=== PATIENT | male | born 1970 | race Caucasian/White ===

== ENCOUNTER 2019-05-23 05:42 | Day surgery (SDC) | payer OTHER ==
[~2019-05-23] VITALS: Ht 190.5 cm; Wt 178.5 kg
[~2019-05-23 05:42] MED LIST: CETI-158 PO; FURO-93 PO; MULT1TAB60 PO; [UNRECOGNIZED DRUG - OTHER] PO
[2019-05-23] MEDS ORDERED: HEPARIN 1,000 UNITS/ML, 10ML ONE (06:16)
[2019-05-23] MEDS ORDERED: EPINEPHRINE 1 MG/ML, 1ML ONE (06:16)
[2019-05-23 06:18] VITALS: BP 150/89
[2019-05-23] MEDS ORDERED: LACTATED RINGERS 1,000 ML IV SCH (06:20)
[2019-05-23] MEDS ORDERED: ACETAMINOPHEN 500 MG TABLET ONE (06:37)
[2019-05-23] MEDS ORDERED: FENTANYL PF 100 MCG/2ML ONE (06:43)
[2019-05-23] MEDS ORDERED: MIDAZOLAM 1 MG/ML, 2ML ONE (06:43)
[2019-05-23] MEDS ORDERED: LIDOCAINE-MPF 2% ,5ML ONE (06:44)
[2019-05-23] MEDS ORDERED: SUCCINYLCHOLINE 20 MG/ML, 10ML ONE (06:45)
[2019-05-23] MEDS ORDERED: HYDROmorphone 2 MG/ML, 1ML IVPush PRN (07:00)
[2019-05-23] MEDS ORDERED: ONDANSETRON 2MG/ML, 2ML IV PRN (07:00)
[2019-05-23] MEDS ORDERED: ACETAMINOPHEN 500 MG TABLET PO ONE (07:00)
[2019-05-23] MEDS ORDERED: LABETALOL 5MG/ML, 20ML IV PRN (07:00)
[2019-05-23] MEDS ORDERED: hydrALAzine 20 MG/ML, 1ML IV PRN (07:00)
[2019-05-23] MEDS ORDERED: OXYcodone 5 MG/5 ML ORAL.SOL UDC PO PRN (07:00)
[2019-05-23] MEDS ORDERED: FENTANYL PF 100 MCG/2ML IV PRN (07:00)
[2019-05-23] MEDS ORDERED: MEPERIDINE/PF 25MG/ML,1ML IVPush PRN (07:00)
[2019-05-23] MEDS ORDERED: PROMETHAZINE 25 MG/ML, 1ML IV PRN (07:00)
[2019-05-23] MEDS ORDERED: EPHEDRINE 50 MG/ML, 1ML IVPush PRN (07:00)
[2019-05-23] MEDS ORDERED: PROPOFOL 10 MG/ML, 20ML ONE (07:10)
[2019-05-23] MEDS ORDERED: KETOROLAC 30 MG/1 ML ONE (07:19)
[2019-05-23] MEDS ORDERED: DEXAMETHASONE 4 MG/ML, 1ML ONE ×3 (07:19)
[2019-05-23] MEDS ORDERED: ONDANSETRON 2MG/ML, 2ML ONE (07:22)
[2019-05-23] MEDS ORDERED: CEFAZOLIN 1,000 MG ONE ×3 (07:32)
== END 2019-05-23 10:00 | disposition home or self-care (01) ==
LOC: OUT 05:42
PROVIDERS: ATTEND Colon & Rectal Surgery
DX: Z45.2 Encounter for adjustment and management of vascular access device (principal); C20 Malignant neoplasm of rectum; C79.9 Secondary malignant neoplasm of unspecified site; Z72.89 Other problems related to lifestyle
CPT/HCPCS: 36561; 77001; C1788; J0171; J0330; J0690; J1100; J1644; J1885; J2250; J2405; J2704; J3010; J7120

== ENCOUNTER 2019-06-12 06:04 | Day surgery (SDC) | payer OTHER ==
[~2019-06-12] VITALS: Ht 190.5 cm; Wt 176.0 kg
[2019-06-12 06:35] VITALS: BP 149/97
[2019-06-12] MEDS ORDERED: FLUMAZENIL 0.1 MG/1 ML, 5ML ONE (07:50)
[2019-06-12] MEDS ORDERED: MIDAZOLAM 1 MG/ML, 5ML ONE (07:50)
[2019-06-12] MEDS ORDERED: NALOXONE 1 MG/ML, 2ML ONE (07:50)
[2019-06-12] MEDS ORDERED: FENTANYL PF 100 MCG/2ML ONE (07:51)
[2019-06-12] MEDS ORDERED: LIDOCAINE 1%, 10ML ONE (08:08)
== END 2019-06-12 11:49 | disposition home or self-care (01) ==
LOC: OUT 06:04
PROVIDERS: ATTEND Specialist
DX: R91.1 Solitary pulmonary nodule (principal); C78.01 Secondary malignant neoplasm of right lung; C20 Malignant neoplasm of rectum; I10 Essential (primary) hypertension; G47.30 Sleep apnea, unspecified
CPT/HCPCS: 32405; 71045; 77012; 88172; 88305; 99156; 99157; J2250; J3010; J2310

== ENCOUNTER 2019-06-27 17:37 | Observation (INO) | payer OTHER ==
[~2019-06-27] VITALS: Ht 190.5 cm; Wt 180.4 kg
[~2019-06-27 17:37] MED LIST changes: -AMOX-291 PO; -APIX5TAB PO; -AVASTIN; -FLUOROURACIL; -FOLFOX; -FURO40TA6 PO; -LEUCOVORIN; -ONDA8TAB9 PO; -OXALIPLATIN; -POTA20TA14 PO
--- NOTE | 2019-06-27 18:19 | NUR ---
PIV ESTABLISHED AND LABS DRAWN.
--- NOTE | 2019-06-27 18:20 | NUR ---
PT HERE WITH C/O THROMBUS TO RIGHT IJ ABOVE R CHEST PORT. 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 PT AAO X 4, NAD, ROOM AIR. CHEST PORT ACCESSED FROM [facility]ION [facility] ON ARRIVAL. PER PT, "I HAVE THIS LIKE TIGHTNESS ON THE RIGHT SIDE FO MY NECK AND I TOLD THE INFUSION CENTER AND THEY SENT ME FOR A US AND THATS WHEN THEY FOUND THE CLOT." MD AT BEDSIDE, PT IN GOWN AND ON FULL MONITOR. CALL LIGHT WITHIN REACH AND SIDERAIL X [address]
[2019-06-27] MEDS ORDERED: FLUOROURACIL (18:28)
[2019-06-27] MEDS ORDERED: OXALIPLATIN (18:28)
[2019-06-27] MEDS ORDERED: LEUCOVORIN (18:28)
[2019-06-27] MEDS ORDERED: FURO40TA6 PO (18:28)
[2019-06-27] MEDS ORDERED: FOLFOX (18:28)
[2019-06-27] MEDS ORDERED: POTA20TA14 PO (18:28)
[2019-06-27] MEDS ORDERED: AVASTIN (18:28)
--- NOTE | 2019-06-27 18:28 | NUR ---
MED REC COMPLETED. LAST CHEMO INFUSION TODAY 06/27
[2019-06-27] MEDS ORDERED: HEPARIN 5,000 UNITS/ML, 1ML IV ONE (18:30)
[2019-06-27] MEDS ORDERED: SODIUM CHLORIDE FLUSH 10ML SYR IVF ONE (18:30)
[2019-06-27] MEDS ORDERED: HEPARIN 5,000 UNITS/ML, 1ML IV PRN ×2 (18:30→19:30)
[2019-06-27] MEDS ORDERED: HEPARIN 25,000 UNITS/250ML PMX 250 ML IV PRN ×2 (18:30→19:30)
[2019-06-27 18:37] LABS: BASOPHILS # (AUTO) 0.06 x10^3/uL (0-0.1); BASOPHILS % (AUTO) 1 % (0-1); EOSINOPHILS # (AUTO) 0.06 x10^3/uL (0-0.4); EOSINOPHILS % (AUTO) 1 % (1-7); LYMPHOCYTES # (AUTO) 2.01 x10^3/uL (1-3.4); LYMPHOCYTES % (AUTO) 20 % (22-44); MD NO; MEAN CORPUSCULAR HEMOGLOBIN 27.7 pg (27.5-34.5); MEAN CORPUSCULAR VOLUME 86.5 fL (81-97); MEAN PLATELET VOLUME 7.9 fL (7.4-10.4); MONOCYTES # (AUTO) 0.26 x10^3/uL (0.2-0.8); MONOCYTES % (AUTO) 3 % (2-9); NEUTROPHILS # (AUTO) 7.62 x10^3/uL (1.8-6.8); NEUTROPHILS % (AUTO) 76 % (42-75); PLATELET COUNT 210 x10^3/uL (130-400); RED BLOOD COUNT 4.57 x10^6/uL (4.38-5.82); RED CELL DISTRIBUTION WIDTH 14.6 % (9.4-14.8)
[2019-06-27 18:40] LABS: INTERNATIONAL NORMALIZED RATIO 0.95 (0.93-1.1); PROTHROMBIN TIME 10.1 Seconds (9.6-11.5)
[2019-06-27 18:41] LABS: ALBUMIN 3.4 g/dL (3.4-5.0); ANION GAP 6 mmol/L (5-15); CALCIUM 8.2 mg/dL (8.5-10.1); CHLORIDE 105 mmol/L (98-107); CREATININE 1.02 mg/dL (0.7-1.3)
[2019-06-27] MEDS ORDERED: HEPARIN 5,000 UNITS/ML, 1ML ONE (18:49)
[2019-06-27] MEDS ORDERED: HEPARIN 25,000 UNITS/250ML PMX 250 ML ONE (18:50)
--- NOTE | 2019-06-27 18:58 | NUR ---
HEPARIN STARTED PER ORDERS, VERIFIED WITH SARAH PUCKETT.
[2019-06-27] MEDS ORDERED: DOCUSATE 100 MG CAPSULE PO PRN (19:00)
[2019-06-27] MEDS ORDERED: LABETALOL 5 MG/ML SYR. (IV ONLY) IVPush PRN (19:00)
[2019-06-27] MEDS ORDERED: BISACODYL 10 MG SUPP PR PRN (19:00)
[2019-06-27] MEDS ORDERED: VISIPAQUE 270 MG/ML, 50ML BOTTLE ONE (19:00)
[2019-06-27] MEDS ORDERED: POLYETHYLENE GLYCOL 17 GM PACKET PO PRN (19:00)
[2019-06-27] MEDS ORDERED: ACETAMINOPHEN 325 MG TABLET PO PRN (19:00)
[2019-06-27] MEDS ORDERED: ONDANSETRON 2MG/ML, 2ML IVPush PRN (19:00)
[2019-06-27] MEDS ORDERED: ENALAPRILAT 1.25 MG/ML, 2ML IVPush PRN (19:00)
[2019-06-27] MEDS ORDERED: PROMETHAZINE 25 MG/ML, 1ML IM PRN (19:00)
--- NOTE | 2019-06-27 19:05 | NUR ---
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 PER PHARMACY, OK TO CHANGE GTT WHEN NEW ORDERS ARE PLACED AND OK NOT TO RE-BOLUS FOR INITIAL.
--- NOTE | 2019-06-27 19:14 | NUR ---
REPORT GIVEN TO IR RN VIA PHONE.
--- NOTE | 2019-06-27 19:19 | NUR ---
PT TO IR.
--- NOTE | 2019-06-27 19:26 | NUR ---
REPORT GIVEN TO SARAH CANSECO. PT TO TRANSFER TO ROOM 433 S/P IR PROCEDURE IF PT IS NOT ICU STATUS.
[2019-06-27] MEDS ORDERED: LIDOCAINE 1%, 10ML ONE (19:49)
--- NOTE | 2019-06-27 19:50 | NUR ---
REPORT GIVEN TO SARAH MYRICK. PT CURRENTLY IN IR BUT TO TRANSFER TO ICU STATUS POST PROCEDURE.
[2019-06-27 21:39] VITALS: BP 143/88
[2019-06-27] MEDS ORDERED: ONDA8TAB9 PO (21:39)
[2019-06-27] MEDS ORDERED: AMOX-291 PO (21:43)
[2019-06-27] MEDS: AMOXICILLIN 500 MG CAPSULE HOMEMEDPO SCH (22:15)
[2019-06-27] MEDS ORDERED: ONDANSETRON ODT 8 MG PO PRN (22:30)
[2019-06-28 00:54] VITALS: BP 134/79
[2019-06-28 07:39] LABS: BASOPHILS # (AUTO) 0.04 x10^3/uL (0-0.1); BASOPHILS % (AUTO) 1 % (0-1); EOSINOPHILS # (AUTO) 0.05 x10^3/uL (0-0.4); EOSINOPHILS % (AUTO) 1 % (1-7); LYMPHOCYTES % (AUTO) 19 % (22-44); MD NO; MEAN CORPUSCULAR HEMOGLOBIN 28.8 pg (27.5-34.5); MEAN CORPUSCULAR HGB CONC 33.6 g/dL (33.2-36.2); MEAN CORPUSCULAR VOLUME 85.9 fL (81-97); MEAN PLATELET VOLUME 7.5 fL (7.4-10.4); MONOCYTES # (AUTO) 0.09 x10^3/uL (0.2-0.8); MONOCYTES % (AUTO) 1 % (2-9); NEUTROPHILS # (AUTO) 5.23 x10^3/uL (1.8-6.8); NEUTROPHILS % (AUTO) 78 % (42-75); PLATELET COUNT 194 x10^3/uL (130-400); RED BLOOD COUNT 4.31 x10^6/uL (4.38-5.82); RED CELL DISTRIBUTION WIDTH 14.6 % (9.4-14.8)
[2019-06-28 07:43] LABS: ALANINE AMINOTRANSFERASE 27 U/L (12-78); ALBUMIN 3.1 g/dL (3.4-5.0); ANION GAP 5 mmol/L (5-15); CALCIUM 8.1 mg/dL (8.5-10.1); CHLORIDE 106 mmol/L (98-107); CREATININE 0.96 mg/dL (0.7-1.3)
[2019-06-28 07:45] LABS: ALKALINE PHOSPHATASE 79 U/L (45-117); BILIRUBIN,TOTAL 1.1 mg/dL (0.2-1.0); TOTAL PROTEIN 6.6 g/dL (6.4-8.2)
[2019-06-28] MEDS: AMOXICILLIN 500 MG CAPSULE HOMEMEDPO SCH (07:56)
[2019-06-28 08:25] VITALS: BP 137/89
[2019-06-28] MEDS ORDERED: ONDANSETRON 2MG/ML, 2ML IVPush SCH (09:00)
[2019-06-28] MEDS ORDERED: APIX5TAB PO (12:15)
[2019-06-28] MEDS ORDERED: APIXABAN 5 MG TABLET PO SCH (12:30)
[2019-06-28 12:46] VITALS: BP 130/87
== END 2019-06-28 14:14 | disposition home or self-care (01) ==
LOC: SUATTDRO 18:36 → ED 19:51 → 4NW 19:58 → INTOOBSV 19:58 → DCLOUNGE 06-28 14:10
PROVIDERS: ADMIT Internal Medicine; ATTEND Hospitalist
DX: I82.C11 Acute embolism and thrombosis of right internal jugular vein (principal); C19 Malignant neoplasm of rectosigmoid junction; C78.00 Secondary malignant neoplasm of unspecified lung; K92.1 Melena
CPT/HCPCS: 36415; 75710; 75820; 76937; 80048; 80053; 82040; 85014; 85018; 85025; 85384; 85520; 85610; 96374; 96375; 96376; 99285; C1751; C1769; C1894; G0378; J1644; J2405; J3010; J3490; Q0162; Q9966; J2250; J1642; J2310

== ENCOUNTER → 2019-06-27 | Outpatient (CLI) | payer OTHER ==
[~2019-06-27] MED LIST changes: +AMOX-291 PO; +APIX5TAB PO; +AVASTIN; +FLUOROURACIL; +FOLFOX; +FURO40TA6 PO; +LEUCOVORIN; +ONDA8TAB9 PO; +OXALIPLATIN; +POTA20TA14 PO
== END | disposition home or self-care (01) ==
LOC: RAD 16:10
PROVIDERS: ATTEND Specialist
DX: I82.C11 Acute embolism and thrombosis of right internal jugular vein (principal); C20 Malignant neoplasm of rectum; C78.00 Secondary malignant neoplasm of unspecified lung; Z79.899 Other long term (current) drug therapy

== ENCOUNTER → 2019-07-08 | Outpatient (CLI) | payer OTHER ==
[~2019-07-08] MED LIST changes: +AMOX-291 PO; +APIX5TAB PO; +AVASTIN; +FLUOROURACIL; +FOLFOX; +FURO40TA6 PO; +LEUCOVORIN; +ONDA8TAB9 PO; +OXALIPLATIN; +POTA20TA14 PO
== END | disposition home or self-care (01) ==
LOC: RAD 08:05
PROVIDERS: ATTEND Specialist
DX: C20 Malignant neoplasm of rectum (principal)
CPT/HCPCS: 36573; C1751

== ENCOUNTER 2019-08-02 10:57 | Day surgery (SDC) | payer OTHER ==
[~2019-08-02] VITALS: Ht 190.5 cm; Wt 169.5 kg
[2019-08-02 11:24] VITALS: BP 133/89
[2019-08-02] MEDS ORDERED: SODIUM CHLORIDE 0.9% 1,000 ML IV SCH (11:28)
[2019-08-02] MEDS ORDERED: CEFAZOLIN PMX 1GM/50ML 50 ML IV ONE (11:30)
[2019-08-02] MEDS ORDERED: CEFAZOLIN PMX 1GM/50ML 50 ML ONE (11:30)
[2019-08-02] MEDS ORDERED: FENTANYL PF 100 MCG/2ML ONE (13:22)
[2019-08-02] MEDS ORDERED: NALOXONE 1 MG/ML, 2ML ONE (13:23)
[2019-08-02] MEDS ORDERED: LIDOCAINE 1%, 20ML ONE (13:23)
[2019-08-02] MEDS ORDERED: MIDAZOLAM 1 MG/ML, 5ML ONE (13:23)
[2019-08-02] MEDS ORDERED: LIDOCAINE 1%, 10ML ONE (13:23)
[2019-08-02] MEDS ORDERED: FLUMAZENIL 0.1 MG/1 ML, 5ML ONE (13:23)
== END 2019-08-02 15:55 | disposition home or self-care (01) ==
LOC: RAD 10:57
PROVIDERS: ATTEND Specialist
DX: T82.868A Thrombosis due to vascular prosthetic devices, implants and grafts, initial encounter (principal); C20 Malignant neoplasm of rectum; C78.00 Secondary malignant neoplasm of unspecified lung; I10 Essential (primary) hypertension; Z82.0 Family history of epilepsy and other diseases of the nervous system; Z79.01 Long term (current) use of anticoagulants; Z79.899 Other long term (current) drug therapy; Z91.09 Other allergy status, other than to drugs and biological substances; Z79.2 Long term (current) use of antibiotics; Z98.890 Other specified postprocedural states; Z72.0 Tobacco use; Y83.8 Other surgical procedures as the cause of abnormal reaction of the patient, or of later complication, without mention of misadventure at the time of the procedure
CPT/HCPCS: 36561; 36590; 76937; 77001; 99156; 99157; C1788; J0690; J1642; J2250; J3010; J7030; J2310

== ENCOUNTER 2019-08-26 15:53 | Outpatient (CLI) | payer OTHER | END 2019-08-26 23:59 | disposition home or self-care (01) | LOC: RAD 15:53 | PROVIDERS: ATTEND Specialist | DX: Z00.6 Encounter for examination for normal comparison and control in clinical research program (principal); Z51.11 Encounter for antineoplastic chemotherapy; Z45.2 Encounter for adjustment and management of vascular access device; C20 Malignant neoplasm of rectum; C78.00 Secondary malignant neoplasm of unspecified lung; D69.6 Thrombocytopenia, unspecified; Z79.899 Other long term (current) drug therapy | CPT/HCPCS: 76770 ==

== ENCOUNTER 2019-08-30 07:12 | Outpatient (CLI) | payer OTHER ==
[2019-08-30] MEDS ORDERED: OMNIPAQUE 350 MG/ML, 150 ML BOTTLE ONE (09:00)
== END 2019-08-30 23:59 | disposition home or self-care (01) ==
LOC: CFH 07:12
PROVIDERS: ATTEND Specialist
DX: C20 Malignant neoplasm of rectum (principal); R91.8 Other nonspecific abnormal finding of lung field; K80.20 Calculus of gallbladder without cholecystitis without obstruction; R59.0 Localized enlarged lymph nodes; R16.2 Hepatomegaly with splenomegaly, not elsewhere classified
CPT/HCPCS: 71260; 74177; 82565; Q9967

== ENCOUNTER → 2019-09-16 | Outpatient (CLI) | payer OTHER ==
[~2019-09-16] MED LIST changes: +GADOTERATE 10 MMOL/20 ML VIAL ONE
== END | disposition home or self-care (01) ==
LOC: RAD 12:27
PROVIDERS: ATTEND Specialist
DX: C20 Malignant neoplasm of rectum (principal); K80.20 Calculus of gallbladder without cholecystitis without obstruction; R91.1 Solitary pulmonary nodule; R16.0 Hepatomegaly, not elsewhere classified; K76.0 Fatty (change of) liver, not elsewhere classified
CPT/HCPCS: 74183; A9575

== ENCOUNTER → 2019-10-21 | Outpatient (CLI) | payer OTHER ==
[~2019-10-21] MED LIST changes: -GADOTERATE 10 MMOL/20 ML VIAL ONE; +MULT-449 PO; -MULT1TAB60 PO; +OMNIPAQUE 350 MG/ML, 100ML BOTTLE ONE
== END | disposition home or self-care (01) ==
LOC: EDSTATUS 10-16 11:00 → CFH 09:28
PROVIDERS: ATTEND Specialist
DX: C78.7 Secondary malignant neoplasm of liver and intrahepatic bile duct (principal); C20 Malignant neoplasm of rectum; K80.20 Calculus of gallbladder without cholecystitis without obstruction; K76.0 Fatty (change of) liver, not elsewhere classified
CPT/HCPCS: 71260; 74177; 82565; Q9967